=== PATIENT | female | born 1965 | race Caucasian/White ===

== ENCOUNTER 2018-10-14 20:52 | Emergency (ER) | payer BC ==
[2018-10-14 21:05] VITALS: BP 162/102
[2018-10-14] MEDS ORDERED: KETOROLAC 15 MG/ML VIAL IVP STA (21:16)
[2018-10-14] MEDS ORDERED: SODIUM CHLORIDE 0.9% 1,000 ML IV STA (21:16)
[2018-10-14] MEDS ORDERED: ONDANSETRON 4 MG/2 ML VIAL IVP STA (21:16)
[2018-10-14] MEDS ORDERED: ACETAMINOPHEN 500 MG TABLET PO STA (21:17)
--- NOTE | 2018-10-14 21:20 | ED Physician Documentation ---
PD HPI ABD PAIN - Stated complaint Stated Complaint: ABD PX - Chief complaint Chief Complaint: Abd Pain - History obtained from History obtained from: Patient - History of Present Illness Timing - onset: How many hours ago (12) Timing - duration: Hours (12) Timing - details: Gradual onset Pain level max: 5 Pain level now: 5 Severity Comments: moderate Quality: Sharp Improved by: Laying still Worsened by: Moving, Breathing Associated symptoms: Other (urinary urgency) Similar symptoms before: Diagnosis (kidney stones) Review of Systems Constitutional: reports: Reviewed and negative Eyes: reports: Reviewed and negative Ears: reports: Reviewed and negative Nose: reports: Reviewed and negative Throat: reports: Reviewed and negative Cardiac: reports: Reviewed and negative Respiratory: reports: Reviewed and negative GI: reports: Reviewed and negative : reports: Reviewed and negative Skin: reports: Reviewed and negative Musculoskeletal: reports: Reviewed and negative Neurologic: reports: Reviewed and negative Psychiatric: reports: Reviewed and negative Endocrine: reports: Reviewed and negative Immunocompromised: reports: Reviewed and negative PD PAST MEDICAL HISTORY - Past Medical History Past Medical History: Yes Other Past Medical History: adrenal fatigue - Past Surgical History Past Surgical History: Yes /[employer]: Dilation and currettage - Allergies Allergies/Adverse Reactions: Allergies Allergy/AdvReac Type Severity Reaction Status Date / Time Penicillins AdvReac Hives Verified 10/14/18 21:08 - Living Situation Living Situation: reports: With spouse/s.o. Living Arrangement: reports: At home - Social History Does the pt smoke?: No Smoking Status: Never smoker Does the pt drink ETOH?: Yes Does the pt have substance abuse?: No - Family History Family history: reports: Other (Reviewed and not pertinent) - Immunizations Immunizations are current?: No Immunizations: TDAP >10years/unknown PD ED PE NORMAL - Vitals Vital signs reviewed: Yes - General General: Alert and oriented X 3, No acute distress - HEENT HEENT: PERRL - Neck Neck: Supple, no meningeal sign - Cardiac Cardiac: RRR, No murmur - Respiratory Respiratory: Clear bilaterally - Abdomen Abdomen: Normal bowel sounds, Soft, Non distended, Other (LLQ TTP, Left CVA tenderness) - Derm Derm: Warm and dry - Extremities Extremities: No deformity - Neuro Neuro: Alert and oriented X 3 - Psych Psych: Normal mood, Normal affect Results - Vitals Vitals: Vital Signs - 24 hr 10/14/18 21:03 Temperature 36.5 C Heart Rate 65 Respiratory 17 Rate Blood Pressure 162/102 H O2 Saturation 99 Oxygen O2 Source Room air - Labs Labs: Laboratory Tests 10/14/18 10/14/18 10/14/18 21:44 21:44 22:20 WBC 9.6 RBC 4.55 Hgb 14.2 Hct 41.0 MCV 90.2 MCH 31.3 H MCHC 34.7 RDW 12.7 Plt Count 244 MPV 8.4 Neut # (Auto) 6.6 Lymph # (Auto) 2.1 [place] # (Auto) 0.8 Eos # (Auto) 0.0 Baso # (Auto) 0.1 Absolute Nucleated RBC 0.00 Nucleated RBC % 0.0 Sodium 137 Potassium 3.5 Chloride 103 Carbon Dioxide 26 Anion Gap 8.0 BUN 18 Creatinine 0.9 Estimated GFR (MDRD) 66 L Glucose 102 H Calcium 9.5 Total Bilirubin 0.3 AST 21 ALT 18 Alkaline Phosphatase 70 Total Protein 7.5 Albumin 4.3 Globulin 3.2 Albumin/Globulin Ratio 1.3 Lipase 29 Urine Color YELLOW Urine Clarity CLEAR Urine pH 7.0 Ur Specific [place] 1.010 Urine Protein NEGATIVE Urine Glucose (UA) NEGATIVE Urine Ketones NEGATIVE Urine Occult Blood SMALL H Urine Nitrite NEGATIVE Urine Bilirubin NEGATIVE Urine Urobilinogen 0.2 (NORMAL) Ur Leukocyte Esterase NEGATIVE Urine RBC 0-5 Urine WBC 0-3 Ur Squamous Epith Cells NONE SEEN Urine Bacteria None Seen Ur Microscopic Review INDICATED Urine Culture Comments NOT INDICATED - Rads (name of study) CT Abd Radiology: Final report received (3mm stone at left UVG, moderate hydronephrosis and hydroureter) PD MEDICAL DECISION MAKING - ED course Complexity details: reviewed old records, reviewed results, re-evaluated patient, considered differential, d/w patient, d/w family ED course: 53-year-old female presented with left lower quadrant abdominal pain and left flank pain. Evaluated for appendicitis, diverticulitis, bowel obstruction, other acute abdominal pathology. CT scan showed obstructing left ureteral stone. Patient discharged with expulsive therapy, prescribed Flomax w paper Rx. Departure - Departure Disposition: 01 Home, Self Care Condition: Stable Instructions: ED Stone Renal W Colic Discharge Date/Time: 10/15/18 02:18
--- NOTE | 2018-10-15 00:34 | CT Report ---
Reason: LLQ and Lt flank pain Procedure Date: 10/14/2018 Accession Number: [id number] / [id number] Procedure: CT - Abdomen/Pelvis WO CPT Code: FULL RESULT: EXAM: CT ABDOMEN AND PELVIS (CT KUB) EXAM DATE: 10/14/2018 09:36 PM. CLINICAL HISTORY: Left lower quadrant and left flank pain. COMPARISONS: None. TECHNIQUE: Routine axial helical CT imaging was performed through the abdomen and pelvis without IV contrast. Reconstructions: Coronal and sagittal. No oral contrast. In accordance with CT protocol optimization, one or more of the following dose reduction techniques were utilized for this exam: automated exposure control, adjustment of mA and/or KV based on patient size, or use of iterative reconstructive technique. FINDINGS: Lung bases: Pectus excavatum deformity. Left lower lobe lateral pleural-based nodule measuring 5 mm. Liver: Unremarkable. Gallbladder: Unremarkable. Bile ducts: Unremarkable. Pancreas: Unremarkable. Spleen: Unremarkable. Adrenals: Unremarkable. Kidneys: Left upper pole renal calculus measuring 4 mm. Mild to moderate left hydronephrosis and hydroureter being caused by a ureterovesicular junction calculus measuring 3 mm. Right kidney is unremarkable. Bowel: Moderate sigmoid diverticulosis. Normal appendix. No acute bowel findings. No evidence for bowel obstruction. No free fluid or free air. Pelvis: The bladder is unremarkable. The uterus is anteverted. Adnexal regions are unremarkable. Vasculature: No acute findings. Bones: Severe L4-L5 degenerative disk disease with endplate sclerosis, disk height loss, and osteophytes. Mild anterolisthesis of L5 on S1 most likely degenerative. No acute bone findings are seen. IMPRESSION: 1. Mild to moderate left hydronephrosis and hydroureter being caused by a ureterovesicular junction calculus measuring 3 mm. Left upper pole renal calculus measuring 4 mm, nonobstructing. 2. Sigmoid colonic diverticulosis. 3. 5 mm left lower lobe pulmonary nodule. If there is low risk for malignancy, then no followup is warranted. If there is high risk for malignancy, recommend a 1-year followup chest CT. 4. See above. RADIA
[2018-10-15 00:38] LABS: BASOPHILS # (AUTO) 0.1 10^3/uL (0.0-0.1); BASOPHILS % (AUTO) 0.7 %; EOSINOPHILS % (AUTO) 0.4 %; HGB - HEMOGLOBIN 14.2 g/dL (12.0-16.0); LYMPHOCYTES # (AUTO) 2.1 10^3/uL (1.5-3.5); LYMPHOCYTES % (AUTO) 22.1 %; MEAN CORPUSCULAR HEMOGLOBIN 31.3 pg (27.0-31.0); MEAN CORPUSCULAR HGB CONC 34.7 g/dL (32.0-36.0); MEAN CORPUSCULAR VOLUME 90.2 fL (81.0-99.0); MEAN PLATELET VOLUME 8.4 fL (7.9-10.8); MONOCYTES # (AUTO) 0.8 10^3/uL (0.0-1.0); MONOCYTES % (AUTO) 8.6 %; NEUTROPHILS # (AUTO) 6.6 10^3/uL (1.5-6.6); NEUTROPHILS % (AUTO) 68.2 %; PLT - PLATELET COUNT 244 10^3/uL (130-450); RED BLOOD COUNT 4.55 10^6/uL (4.20-5.40); RED CELL DISTRIBUTION WIDTH 12.7 % (12.0-15.0); WHITE BLOOD COUNT 9.6 x10^3/uL (4.8-10.8)
[2018-10-15 01:16] LABS: ALBUMIN 4.3 g/dL (3.2-5.5); ALBUMIN/GLOBULIN RATIO 1.3 (1.0-2.2); BILIRUBIN,TOTAL 0.3 mg/dL (0.2-1.0); CALCIUM 9.5 mg/dL (8.5-10.3); CREATININE 0.9 mg/dL (0.4-1.0); TOTAL PROTEIN 7.5 g/dL (6.7-8.2)
[2018-10-15 01:54] LABS: BILIRUBIN,URINE NEGATIVE (NEGATIVE); GLUCOSE, URINE (UA) NEGATIVE (NEGATIVE); KETONES,URINE (UA) NEGATIVE (NEGATIVE); LEUKOCYTE ESTERASE, URINE NEGATIVE (NEGATIVE); NITRITE,URINE NEGATIVE (NEGATIVE); OCCULT BLOOD,URINE SMALL (NEGATIVE); PROTEIN,URINE NEGATIVE (NEGATIVE); UROBILINOGEN,URINE 0.2 (NORMAL) E.U./dL (NORMAL)
[2018-10-15 01:56] LABS: CLARITY,URINE CLEAR (CLEAR)
[2018-10-15 01:58] LABS: BACTERIA,URINE None Seen /HPF (None Seen); RBC,URINE 0-5 /HPF (0-5); SQUAMOUS EPITHELIAL CELL,UR NONE SEEN (<= Few)
== END 2018-10-15 02:18 | disposition home or self-care (01) ==
LOC: ED 20:52
DX: N13.2 Hydronephrosis with renal and ureteral calculous obstruction (principal); N13.4 Hydroureter
CPT/HCPCS: 36415; 74176; 80053; 81001; 83690; 85025; 96374; 99283; A9270; 81003; 87086

== ENCOUNTER 2018-10-20 18:02 | Emergency (ER) | payer BC ==
[2018-10-20] MEDS ORDERED: ASPIRIN CHEW 81 MG TABLET PO STA (19:36)
--- NOTE | 2018-10-20 19:37 | ED Physician Documentation ---
History of Present Illness - Stated complaint Stated Complaint: SOA/CP/NAUSEA/ON FLOMAX - Chief complaint Chief Complaint: Cardiac - History obtained from History obtained from: Patient, Family - History of Present Illness Timing: Today Pain level max: 0 Pain level now: 0 - Additonal information Additional information: 53-year-old female presents to the emergency department stating that when she was walking up a hill earlier today, she felt like she became short of breath and her heart was pounding. This resolved quickly when she stopped. It occurred again when she walked up the next hill. She did have mild chest tightness at that time. She states this is never happened to her before. She was recently started on Flomax for a kidney stone. No fevers. No nausea. No vomiting. Worse with exertion and better with rest. 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 : None HEENT: None Psych: Depression Derm: None Other Past Medical History: adreal fatigue - Past Surgical History 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 - Present Medications Home Medications: Ambulatory Orders Medication Instructions Recorded Confirmed Tamsulosin HCl [Flomax] 0.4 mg PO DAILY 10/20/18 10/20/18 - Allergies Allergies/Adverse Reactions: Allergies Allergy/AdvReac Type Severity Reaction Status Date / Time Penicillins AdvReac Hives Verified 10/20/18 18:07 - Social History Does the pt smoke?: No Smoking Status: Never smoker Does the pt drink ETOH?: Yes Does the pt have substance abuse?: No - Immunizations Immunizations are current?: No Immunizations: TDAP >10years/unknown - POLST Patient has POLST: No PD ED PE NORMAL - Vitals Vital signs reviewed: Yes - General General: Alert and oriented X 3, No acute distress - HEENT HEENT: PERRL, Moist mucous membranes - Neck Neck: Supple, no meningeal sign - Cardiac Cardiac: RRR, No murmur, Strong equal pulses - Respiratory Respiratory: No respiratory distress, Clear bilaterally - Abdomen Abdomen: Soft, Non tender, Non distended - Derm Derm: Warm and dry - Extremities Extremities: No edema, No calf tenderness / cord - Neuro Neuro: Alert and oriented X 3 - Psych Psych: Normal mood, Normal affect Results - Vitals Vitals: Vital Signs - 24 hr 10/20/18 10/20/18 10/20/18 18:05 19:20 20:50 Temperature 36.2 C L 37.2 C Heart Rate 72 68 66 Respiratory 20 18 16 Rate Blood Pressure 133/85 H 173/96 H 144/95 H O2 Saturation 98 97 99 Oxygen O2 Source Room air - EKG (time done) 1810 Rate: Rate (enter#) (67) Rhythm: NSR [place]: Normal Intervals: Normal NM QRS: Normal Ischemia: Normal ST segments - Labs Labs: Laboratory Tests 10/20/18 10/20/18 10/20/18 19:50 19:50 19:50 WBC 6.3 RBC 4.20 Hgb 13.3 Hct 38.6 MCV 92.1 MCH 31.8 H MCHC 34.5 RDW 13.0 Plt Count 233 MPV 8.4 Neut # (Auto) 3.5 Lymph # (Auto) 2.1 [place] # (Auto) 0.5 Eos # (Auto) 0.1 Baso # (Auto) 0.1 Absolute Nucleated RBC 0.00 Nucleated RBC % 0.0 Sodium 135 Potassium 3.7 Chloride 104 Carbon Dioxide 23 Anion Gap 8.0 BUN 25 H Creatinine 0.8 Estimated GFR (MDRD) 75 L Glucose 112 H Calcium 9.2 Total Bilirubin 0.6 AST 16 ALT 15 Alkaline Phosphatase 64 Troponin I < 0.04 Total Protein 7.0 Albumin 4.0 Globulin 3.0 Albumin/Globulin Ratio 1.3 Lipase 29 - Rads (name of study) cxr Radiology: Prelim report reviewed, EMP read contemporaneously, See rad report (No acute disease) PD MEDICAL DECISION MAKING - ED course Complexity details: reviewed results, re-evaluated patient, considered differential (No ST elevation [place], no aortic dissection, no PE, no tension pneumothorax, no aortic aneurysm), d/w patient ED course: 53-year-old female with chest pain that could be related to stable angina, could also be a medication side effect. Negative troponin. Normal EKG. We will start her on a baby aspirin a day, follow-up with her doctor for a stress test within the next 3-4 days. Patient is to avoid strenuous activity until that time. She will return if she develops recurrent symptoms. Patient counseled regarding signs and symptoms for which I believe and urgent re-evaluation would be necessary. Patient with good understanding of and agreement to plan and is comfortable going home at this time This document was made in part using voice recognition software. While efforts are made to proofread this document, sound alike and grammatical errors may occur. Departure - Departure Disposition: Home, Self Care Clinical Impression: Chest pain Qualifiers: Chest pain type: unspecified Qualified Code(s): R07.9 - Chest pain, unspecified Condition: Good Instructions: ED Chest Pain Atypical Unkn Cause Follow-Up: Provider,Other [Primary Care Provider] - Within 3 Days Comments: You need to follow up with you doctor within 3 days for a cardiac stress test. Avoid exertion until that time. Start on a baby aspirin daily. Return if your symptoms recur or worsen. Stop the flomax as well. Discharge Date/Time: 10/20/18 21:04
--- NOTE | 2018-10-20 20:05 | XRAY Report ---
Reason: Chest Pain Procedure Date: 10/20/2018 Accession Number: [id number] / [id number] Procedure: XR - Chest 1 View X-Ray CPT Code: 73391 FULL RESULT: EXAM: CHEST RADIOGRAPHY EXAM DATE: 10/20/2018 07:42 PM. CLINICAL HISTORY: Shortness of breath, dizziness, and racing heart. COMPARISON: None. TECHNIQUE: 1 view. FINDINGS: Lungs/Pleura: No focal consolidation or evidence of edema. No pleural effusion or pneumothorax. Mediastinum: Normal cardiomediastinal contour. Other: The bones are unremarkable. IMPRESSION: No acute cardiopulmonary abnormality. RADIA
[2018-10-20 20:07] LABS: BASOPHILS # (AUTO) 0.1 10^3/uL (0.0-0.1); BASOPHILS % (AUTO) 0.9 %; EOSINOPHILS # (AUTO) 0.1 10^3/uL (0.0-0.7); EOSINOPHILS % (AUTO) 1.1 %; HGB - HEMOGLOBIN 13.3 g/dL (12.0-16.0); LYMPHOCYTES # (AUTO) 2.1 10^3/uL (1.5-3.5); LYMPHOCYTES % (AUTO) 33.8 %; MEAN CORPUSCULAR HEMOGLOBIN 31.8 pg (27.0-31.0); MEAN CORPUSCULAR HGB CONC 34.5 g/dL (32.0-36.0); MEAN CORPUSCULAR VOLUME 92.1 fL (81.0-99.0); MEAN PLATELET VOLUME 8.4 fL (7.9-10.8); MONOCYTES # (AUTO) 0.5 10^3/uL (0.0-1.0); MONOCYTES % (AUTO) 8.7 %; NEUTROPHILS # (AUTO) 3.5 10^3/uL (1.5-6.6); NEUTROPHILS % (AUTO) 55.5 %; PLT - PLATELET COUNT 233 10^3/uL (130-450); WHITE BLOOD COUNT 6.3 x10^3/uL (4.8-10.8)
[2018-10-20 20:20] LABS: ALBUMIN/GLOBULIN RATIO 1.3 (1.0-2.2); BILIRUBIN,TOTAL 0.6 mg/dL (0.2-1.0); CALCIUM 9.2 mg/dL (8.5-10.3); CREATININE 0.8 mg/dL (0.4-1.0)
[2018-10-20 20:52] VITALS: BP 144/95
== END 2018-10-20 21:04 | disposition home or self-care (01) ==
LOC: ED 18:02
DX: R07.9 Chest pain, unspecified (principal)
CPT/HCPCS: 36415; 71045; 80053; 83690; 84484; 85025; 93005; 99283; 99284; A9270